=== PATIENT | male | born 2000 | race Two or more races ===

== ENCOUNTER 2019-11-18 17:57 | Emergency (ER) | payer OTHER ==
[~2019-11-18] VITALS: Ht 185.4 cm; Wt 63.6 kg
[~2019-11-18 17:57] MED LIST: NOCURR
[2019-11-18 20:02] VITALS: BP 127/80
[2019-11-18] MEDS ORDERED: ONDANSETRON HCL 4 MG TABLET PO ONE (20:15)
== END 2019-11-18 20:32 | disposition home or self-care (01) ==
LOC: EMS 17:57
DX: F17.203 Nicotine dependence unspecified, with withdrawal (principal); Z88.5 Allergy status to narcotic agent
CPT/HCPCS: 71045; 99283; Q0162

== ENCOUNTER 2019-11-21 03:23 | Emergency (ER) | payer OTHER ==
[~2019-11-21] VITALS: Ht 185.4 cm; Wt 63.6 kg
[2019-11-21 05:02] LABS: BASOPHILS % (AUTO) 1.6 % (0.0-2.0); EOSINOPHILS % (AUTO) 0.2 % (1.0-6.0); HEMATOCRIT 46.5 % (41-53); HEMOGLOBIN 15.7 g/dL (13.5-17.5); LYMPHOCYTES % (AUTO) 41.7 % (22.0-44.0); MEAN CORPUSCULAR HEMOGLOBIN 29.3 pg (26.0-34.0); MEAN CORPUSCULAR HGB CONC 33.8 G/dL (31.0-37.0); MEAN CORPUSCULAR VOLUME 87 fL (80-100); MONOCYTES # (AUTO) 0.6 K/uL (0.1-1.0); MONOCYTES % (AUTO) 8.5 % (2.0-9.0); NEUTROPHILS # (AUTO) 3.5 K/uL (1.8-7.7); PLATELET COUNT (AUTO) 225 K/uL (150-450); RED BLOOD CELL COUNT(AUTO) 5.37 MIL/uL (4.50-5.90); RED CELL DISTRIBUTION WIDTH 12.7 % (11.5-14.5)
[2019-11-21 05:18] LABS: ANION GAP 10 mmol/L (8-16); CALCIUM, TOTAL 9.3 mg/dL (8.8-10.5); CARBON DIOXIDE 26 mmol/L (22-29); CHLORIDE 106 mmol/L (98-107); CREATININE 0.78 mg/dL (0.60-1.30); GLOMERULAR FILTR. RATE CALC > 60 mL/min (>60); GLUCOSE,RANDOM 102 mg/dL (70-110); POTASSIUM 3.6 mmol/L (3.5-5.1); SODIUM SERUM 142 mmol/L (136-145); UREA NITROGEN, BLOOD 10 mg/dL (7-18)
[2019-11-21 05:24] VITALS: BP 132/56
[2019-11-21 05:25] LABS: ALANINE AMINOTRANSFERASE 25 U/L (12-78); ALBUMIN 4.5 g/dL (3.4-5.0); ALKALINE PHOSPHATASE 130 U/L (46-116); ASPARTATE AMINOTRANSFERASE 16 U/L (15-37); BILIRUBIN,TOTAL 0.5 mg/dL (0.1-1.0); TOTAL PROTEIN, SERUM 8.4 g/dL (6.4-8.2)
== END 2019-11-21 06:00 | disposition home or self-care (01) ==
LOC: EMS 03:23
DX: F41.0 Panic disorder [episodic paroxysmal anxiety] (principal)
CPT/HCPCS: 93005; 36415-L1; 36415-TC; 71045-TC